=== PATIENT | female | born 2000 | race Caucasian/White ===

== ENCOUNTER 2023-11-22 23:02 | Emergency (ER) | payer MEDICAID ==
[~2023-11-22] VITALS: Ht 165.1 cm; Wt 75.7 kg
[2023-11-22 23:22] VITALS: BP 134/84; PULSE 95; RESP 18; TEMP 98.6; O2SAT 99
[2023-11-23] MEDS ORDERED: AMOX1TAB8 PO (00:18)
[2023-11-23] MEDS ORDERED: NAPR-54 PO (00:18)
[2023-11-23 00:19] VITALS: O2SAT 99
== END 2023-11-23 00:20 | disposition home or self-care (01) ==
LOC: MED 23:02
DX: H65.192 Other acute nonsuppurative otitis media, left ear (principal); Z79.899 Other long term (current) drug therapy
CPT/HCPCS: 99283